=== PATIENT | female | born 1975 ===

== ENCOUNTER 2017-06-06 20:18 | Emergency (ER) | payer OTHER ==
[2017-06-06 20:18] VITALS: BMI 25.2
[2017-06-06 20:36] VITALS: BP 123/76; PULSE 70; RESP 16; TEMP 98.4; O2SAT 98
--- NOTE | 2017-06-06 21:31 | ED PDOC ---
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 Patient states she just finished her menses and is currently taking control but she is concerned she may be . She did not take any test at home. She denies vaginal bleeding at present, denies any dysuria. PMD: none Past Medical History Reviewed: Historical Data, Nursing Documentation, Vital Signs Vital Signs: Last Vital Signs Temp 98.4 F 06/06/17 20:32 Pulse 70 06/06/17 20:32 Resp 16 06/06/17 20:32 BP 123/76 06/06/17 20:32 Pulse Ox 98 06/06/17 21:38 - Medical History PMH: Anxiety - Surgical History Surgical History: Cholecystectomy (03-16-2016), (x 2) Other surgeries: surgery for ectopic - Family History Family History: States: No Known Family Hx - Living Arrangements Living Arrangements: With Family - Social History Current smoker - smoking cessation education provided: No Alcohol: None Drugs: Denies - Home Medications Home Medications: Ambulatory Orders Medication Instructions Recorded Aluminum Hydroxide/Magnesium 30 ml PO 5XD PRN #240 ml 02/17/16 [Maalox Plus 30 ml] Docusate [Colace] 100 mg PO BID #60 cap 02/17/16 Magnesium Citrate [Good Neighbor 300 ml PO ONCE PRN #1 bottle 02/17/16 Pharmacy Magnesium Citrate] Ibuprofen [Motrin] 600 mg PO Q6H #30 tab 06/07/16 - Allergies Allergies/Adverse Reactions: Allergies Allergy/AdvReac Type Severity Reaction Status Date / Time No Known Allergies Allergy Verified 06/06/17 20:31 Review of Systems ROS Statement: Except As Marked, All Systems Reviewed And Found Negative Constitutional: Negative for: Fever Cardiovascular: Negative for: Chest Pain Respiratory: Negative for: Cough Gastrointestinal: Positive for: Abdominal Pain. Negative for: Nausea, Vomiting Genitourinary Female: Negative for: Dysuria, Vaginal Bleeding Physical Exam - Reviewed Nursing Documentation Reviewed: Yes Vital Signs Reviewed: Yes - Physical Exam Appears: Positive for: Well, Non-toxic, No Acute Distress Skin: Negative for: Rash Eye Exam: Positive for: Normal appearance Cardiovascular/Chest: Positive for: Regular Rate, Rhythm Respiratory: Positive for: Normal Breath Sounds Gastrointestinal/Abdominal: Positive for: Soft. Negative for: Tenderness, Distended, Guarding, Rebound Neurologic/Psych: Positive for: Alert, Oriented - Laboratory Results Urine POC: Negative Urine dip results: Negative for: Leukocyte Esterase, Blood, Nitrate, Ketones, Glucose, Bilirubin, Protein - ECG O2 Sat by Pulse Oximetry: 98 Pulse Ox Interpretation: Normal Medical Decision Making Medical Decision Makin42 year old female with abd pain Patient is insisting on serum test. She states that 8 years ago she was diagnosed with an ectopic and the urine test was negative but the blood test was positive. Plan: Urine test U dip Serum beta Both urine and serum beta's are negative. U dip negative. Patient was referred to [facility] clinic for follow-up. Advised NSAIDs for pain as needed. Disposition - Clinical Impression Clinical Impression: Abdominal cramps - Patient ED Disposition Is Patient to be Admitted: No Counseled Patient/Family Regarding: Studies Performed, Diagnosis, Need For Followup - Disposition Referrals: [facility] [Outside] Disposition: Routine/Home Disposition Time: 23:06 Condition: STABLE Additional Instructions: Tylenol or motrin for pain as needed. Follow up with women's clinic. Instructions: Abdominal Pain (ED) Forms: [employer] (Vietnamese) Print Language: PUERTO RICAN
== END 2017-06-06 23:20 | disposition home or self-care (01) ==
LOC: H.ER 20:18
DX: R10.9 Unspecified abdominal pain (principal); F41.9 Anxiety disorder, unspecified

== ENCOUNTER 2017-08-29 20:36 | Emergency (ER) | payer OTHER ==
[2017-08-29 20:36] VITALS: BMI 25.2
[2017-08-29 21:36] VITALS: BP 99/64; PULSE 65; TEMP 98.2; O2SAT 100
[2017-08-29] MEDS ORDERED: Lactated Ringer's 1,000 ML IV STA (22:09)
[2017-08-29] MEDS ORDERED: Dextrose 5%/Lactated Ringer's 1,000 ML IV SCH (22:15)
--- NOTE | 2017-08-29 22:25 | ED PDOC ---
HPI: Abdomen Time Seen by Provider: 08/29/17 21:39 Chief Complaint (Nursing): Abdominal Pain Chief Complaint (Provider): Abdominal Pain History Per: Patient Onset/Duration Of Symptoms: Days (3) Current Symptoms Are (Timing): Still Present Severity: Moderate Location Of Pain/Discomfort: LUQ, LLQ, Suprapubic Quality Of Discomfort: "Pain" Associated Symptoms: Nausea. denies: Fever, Chills, Vomiting, Diarrhea, Loss Of Appetite, Back Pain, Chest Pain, Constipation, Urinary Symptoms Exacerbating Factors: None Alleviating Factors: None Last Bowel Movement: Today Additional History Per: Patient Additional Complaint(s): 42 y/o female complaining of lower abdominal pain for the last three days associated with mild nausea without vomiting. She recently took a home test that was positive. 7 years ago, the patient had an ectopic pregancy and underwent oophorectomy and salpingectomy. No vaginal bleeding, or discharge. LMNP mid June, some spotting mid-july for 1.5 days. No PMD Past Medical History Reviewed: Historical Data, Nursing Documentation, Vital Signs Vital Signs: Last Vital Signs Temp 98.2 F 08/29/17 21:29 Pulse 65 08/29/17 21:29 Resp BP 99/64 L 08/29/17 21:29 Pulse Ox 100 08/30/17 17:53 - Medical History PMH: Anxiety, Depression - Surgical History Surgical History: Cholecystectomy (03-16-2016), (x 2) Other surgeries: oophorectomy and salpingectomy - Family History Family History: States: Unknown Family Hx - Social History Current smoker - smoking cessation education provided: No Ex-Smoker (has not smoked in the last 12 months): No Alcohol: None Drugs: Denies - Immunization History Hx Tetanus Toxoid Vaccination: No Hx Influenza Vaccination: No Hx Pneumococcal Vaccination: No - Home Medications Home Medications: Ambulatory Orders Medication Instructions Recorded Aluminum Hydroxide/Magnesium 30 ml PO 5XD PRN #240 ml 02/17/16 [Maalox Plus 30 ml] Docusate [Colace] 100 mg PO BID #60 cap 02/17/16 Magnesium Citrate [Good Neighbor 300 ml PO ONCE PRN #1 bottle 02/17/16 Pharmacy Magnesium Citrate] Ibuprofen [Motrin] 600 mg PO Q6H #30 tab 06/07/16 Acetaminophen [Tylenol Extra 1,000 mg PO Q6 PRN #100 tablet 08/30/17 Strength] Multivit/Folic Acid/I 1 tab PO DAILY #100 tab 08/30/17 [ Plus] - Allergies Allergies/Adverse Reactions: Allergies Allergy/AdvReac Type Severity Reaction Status Date / Time No Known Allergies Allergy Verified 06/06/17 20:31 Review of Systems ROS Statement: Except As Marked, All Systems Reviewed And Found Negative (and as per HPI) Gastrointestinal: Positive for: Nausea, Abdominal Pain Physical Exam - Reviewed Nursing Documentation Reviewed: Yes Vital Signs Reviewed: Yes - Physical Exam Appears: Positive for: Non-toxic, In Acute Distress (moderate) Head Exam: Positive for: ATRAUMATIC, NORMOCEPHALIC Skin: Positive for: Warm, Dry Cardiovascular/Chest: Positive for: Regular Rate, Rhythm Respiratory: Negative for: Accessory Muscle Use, Respiratory Distress Gastrointestinal/Abdominal: Positive for: Bowel Sounds (normal), Soft, Tenderness (suprapubic). Negative for: Mass, Guarding, Rebound Back: Positive for: Normal Inspection. Negative for: L CVA Tenderness, R CVA Tenderness, Decreased ROM Lymphatic: Negative for: Adenopathy Neurologic/Psych: Positive for: Alert. Negative for: Motor/Sensory Deficits - Laboratory Results Result Diagrams: 08/29/17 22:41 08/29/17 22:41 - ECG O2 Sat by Pulse Oximetry: 100 (RA) Medical Decision Making Medical Decision Making: Impression: and lower abdominal pain. Differential includes, but is not limited to: UTI, ectopic , round ligament pain, dehydration Plan: - Labs - US - IVF Accession No. : [id number] Patient Name / ID : SARA NAPIER / [id number] Exam Date : 08/29/2017 23:05:50 ( Approved ) Study Comment : Sex / Age : F / 42Y Creator : Nina Graham MD Dictator : Software Writer : Secondary Set Up Man : Nina Graham MD Approver2 : Report Date : 08/30/2017 00:24:00 My Comment : [facility] Division of Radiology [address] [address] Tel. no. Patient Name: QUYEN MARTINEZ Pt. Address: [address] [place] [address]. Rec #: [id number] [place] [address]: Esau FORBES, Mary Anne Penaloza Pt Order Location: [facility] : 1975 Female Age: 42 Order #: [id number] Reason for exam: preg pelvic pain h/o ectopic Ultrasound OB TRANSVAGINAL Exam Date: 08/29/17 This imaging exam was performed at [facility] EXAM: US , Transvaginal EXAM DATE/TIME: 08/29/2017 10:08 PM CLINICAL HISTORY: 42 years old, female; Pain; Other: Pelvic pain; Gestational age or lmp: 07/24/17; ; Additional info: Preg pelvic pain h/o ectopic TECHNIQUE: Real-time transvaginal obstetrical ultrasound of the maternal pelvis with image documentation. Transvaginal imaging was used for better evaluation of the adnexa. COMPARISON: No relevant prior studies available. FINDINGS: Uterus: Measures 8.6 x 4.5 x 6.8 cm. No intrauterine gestation is seen. Endometrial stripe measures 1.9 cm in thickness, which is abnormally thickened. It is mildly heterogeneous in appearance. Cervix appears long and closed. Right ovary: Could not be visualized. May be surgically absent, as the patient reports she has only one ovary. Left ovary: Measures 3.6 x 2.1 x 2.8 cm. Contains a 1.9 x 1.8 x 1.5 cm complex cystic lesion. This lesion has a thick wall, a cystic center, and a mildly crenulated appearance. It most likely represents a corpus luteal cyst, given its appearance. It does appear intraovarian rather than paraovarian in location. Flow seen in the left ovary on color and Doppler imaging, with no evidence of torsion. Cul-de-sac: No free fluid. IMPRESSION: No intrauterine gestation seen. Patient's quantitative beta-hCG level is reportedly 2331. Mildly thickened and heterogeneous endometrium. This could represent blood products/clot in the endometrial canal, secondary to a spontaneous . Note that retained products of conception and an ectopic gestation are not excluded entirely in this patient, however. Recommend clinical correlationand close clinical followup, including serial beta-hCG levels. Complex cystic lesion in the left ovary, most likely a corpus luteal cyst. Right ovary is not seen, and may be surgically absent. See above for remaining findings. Dictated By: Nina Graham MD Dictated Date/Time: 08/30/1723 Signed By: Nina Graham MD Date Signed: 23 Transcribed By: CATE Transcribe Date/Time : 08/30/1723 [facility]/BENJAMIN Castillo PREFABRICATOR medical professionals. Pt to repeat betahcg in 48 hours and repeat US in a week. DW pt findings and plan of care. Pt to repeat betahcg in ER and [facility]. Instructed to return to ER immediately for severe pain or bleeding. Concerns/questions addressed/answered. Scribe Attestation: Documented by Valeri Valdivia, acting as a scribe for Mary Anne Cifuentes MD. Provider Scribe Attestation: All medical record entries made by the Scribe were at my direction and personally dictated by me. I have reviewed the chart and agree that the record accurately reflects my personal performance of the history, physical exam, medical decision making, and the department course for this patient. I have also personally directed, reviewed, and agree with the discharge instructions and disposition. Disposition - Clinical Impression Clinical Impression: Abdominal pain during - Disposition Referrals: [facility] [Outside] Disposition: Routine/Home Disposition Time: 00:30 Condition: STABLE Additional Instructions: REGRESA A LA FAVIO DE EMERGENCIA SONIA A RIPITAR TELLO MINOO. REGRESA INMEDIATO SI TIENE MUCHO DOLOR. MARÍA TYLENOL PARA DOLOR Y VITAMINA DIARIO Prescriptions: Acetaminophen [Tylenol Extra Strength] 1,000 mg PO Q6 PRN #100 tablet PRN Reason: PAIN Multivit/Folic Acid/I [ Plus] 1 tab PO DAILY #100 tab Instructions: Pitfalls After Age 35, Symptoms Forms: [facility] (Congolese) Print Language: KYRGYZ
[2017-08-29 22:44] LABS: BASO # 0.1 K/uL (0.0-0.2); BASO % 0.8 % (0.0-2.0); EOS # 0.1 K/uL (0.0-0.7); EOS % 1.3 % (0.0-4.0); LYMPH # 1.6 K/uL (1.0-4.3); LYMPH % 20.1 % (20.0-40.0); MEAN CELL VOLUME 89.5 fl (81.0-99.0); MEAN CORPUSCULAR HEMOGLOBIN 30.1 pg (27.0-31.0); MEAN CORPUSCULAR HGB CONC 33.6 g/dL (33.0-37.0); MEAN PLATELET VOLUME 8.2 fl (7.2-11.7); MONO # 0.7 K/uL (0.0-0.8); MONO % 8.9 % (0.0-10.0); NEUT # 5.3 K/uL (1.8-7.0); NEUT % 68.9 % (50.0-75.0); RBC 4.64 Mil/uL (3.80-5.20); RED CELL DISTRIBUTION WIDTH 13.5 % (11.5-14.5); WHITE BLOOD COUNT 7.7 K/uL (4.8-10.8)
[2017-08-29 22:55] LABS: BLOOD UREA NITROGEN 16 mg/dl (7-17); CALCIUM 8.8 mg/dL (8.4-10.2); GFR AFRICAN-AMERICAN > 60; GFR NON-AFRICAN AMERICAN > 60
[2017-08-29 23:01] LABS: INR 0.9 (0.9-1.2); PARTIAL THROMBOPLASTIN TIME 36.4 Seconds (25.6-37.1); PROTHROMBIN TIME 10.1 Seconds (9.8-13.1)
--- NOTE | 2017-08-30 00:24 | US ---
EXAM: US , Transvaginal EXAM DATE/TIME: 08/29/2017 10:08 PM CLINICAL HISTORY: 42 years old, female; Pain; Other: Pelvic pain; Gestational age or lmp: 07/24/17; ; Additional info: Preg pelvic pain h/o ectopic TECHNIQUE: Real-time transvaginal obstetrical ultrasound of the maternal pelvis with image documentation. Transvaginal imaging was used for better evaluation of the adnexa. COMPARISON: No relevant prior studies available. FINDINGS: Uterus: Measures 8.6 x 4.5 x 6.8 cm. No intrauterine gestation is seen. Endometrial stripe measures 1.9 cm in thickness, which is abnormally thickened. It is mildly heterogeneous in appearance. Cervix appears long and closed. Right ovary: Could not be visualized. May be surgically absent, as the patient reports she has only one ovary. Left ovary: Measures 3.6 x 2.1 x 2.8 cm. Contains a 1.9 x 1.8 x 1.5 cm complex cystic lesion. This lesion has a thick wall, a cystic center, and a mildly crenulated appearance. It most likely represents a corpus luteal cyst, given its appearance. It does appear intraovarian rather than paraovarian in location. Flow seen in the left ovary on color and Doppler imaging, with no evidence of torsion. Cul-de-sac: No free fluid. IMPRESSION: No intrauterine gestation seen. Patient's quantitative beta-hCG level is reportedly 2331. Mildly thickened and heterogeneous endometrium. This could represent blood products/clot in the endometrial canal, secondary to a spontaneous . Note that retained products of conception and an ectopic gestation are not excluded entirely in this patient, however. Recommend clinical correlationand close clinical followup, including serial beta-hCG levels. Complex cystic lesion in the left ovary, most likely a corpus luteal cyst. Right ovary is not seen, and may be surgically absent. See above for remaining findings.
== END 2017-08-30 01:13 | disposition home or self-care (01) ==
LOC: H.ER 20:36
DX: O26.899 Other specified pregnancy related conditions, unspecified trimester (principal); F32.9 Major depressive disorder, single episode, unspecified; F41.9 Anxiety disorder, unspecified
CPT/HCPCS: 76817; 80048; 81025; 84702; 85025; 85610; 85730; 86850; 86900; 99283; J7120

== ENCOUNTER 2017-08-31 07:11 | Emergency (ER) | payer OTHER ==
[2017-08-31 07:22] VITALS: BP 104/65; PULSE 79; TEMP 98; O2SAT 98; BMI 26.3
--- NOTE | 2017-08-31 08:23 | ED PDOC ---
HPI: Female Pain Time Seen by Provider: 08/31/17 07:38 Chief Complaint (Nursing): Medical Clearance Chief Complaint (Provider): Repeat beta History Per: Patient History/Exam Limitations: no limitations Additional Complaint(s): Pt presents to ED for repeat beta hCG, abdominal pain and vaginal bleeding have resolved. Denies fever, nausea, vomiting. Abnormal Vaginal Bleeding: No Past Medical History Reviewed: Nursing Documentation, Vital Signs Vital Signs: Last Vital Signs Temp 98 F 08/31/17 07:21 Pulse 79 08/31/17 07:21 Resp BP 104/65 08/31/17 07:21 Pulse Ox 98 08/31/17 07:43 - Medical History PMH: Anxiety, Depression - Surgical History Surgical History: Cholecystectomy (03-16-2016), (x 2) - Family History Family History: States: Unknown Family Hx - Social History Current smoker - smoking cessation education provided: No Alcohol: None - Immunization History Hx Tetanus Toxoid Vaccination: No Hx Influenza Vaccination: No Hx Pneumococcal Vaccination: No - Home Medications Home Medications: Ambulatory Orders Medication Instructions Recorded Aluminum Hydroxide/Magnesium 30 ml PO 5XD PRN #240 ml 02/17/16 [Maalox Plus 30 ml] Docusate [Colace] 100 mg PO BID #60 cap 02/17/16 Magnesium Citrate [Good Neighbor 300 ml PO ONCE PRN #1 bottle 02/17/16 Pharmacy Magnesium Citrate] Ibuprofen [Motrin] 600 mg PO Q6H #30 tab 06/07/16 Acetaminophen [Tylenol Extra 1,000 mg PO Q6 PRN #100 tablet 08/30/17 Strength] Multivit/Folic Acid/I 1 tab PO DAILY #100 tab 08/30/17 [ Plus] - Allergies Allergies/Adverse Reactions: Allergies Allergy/AdvReac Type Severity Reaction Status Date / Time No Known Allergies Allergy Verified 08/31/17 07:43 Review of Systems Constitutional: Negative for: Fever, Chills Cardiovascular: Negative for: Chest Pain Respiratory: Negative for: Cough, Shortness of Breath Gastrointestinal: Negative for: Nausea, Vomiting, Abdominal Pain, Diarrhea Genitourinary Female: Negative for: Dysuria, Hematuria, Vaginal Discharge, Vaginal Bleeding Neurological: Negative for: Headache Physical Exam - Reviewed Nursing Documentation Reviewed: Yes Vital Signs Reviewed: Yes - Physical Exam Appears: Positive for: Well, No Acute Distress Skin: Positive for: Normal Color, Warm, Dry Eye Exam: Positive for: Normal appearance, EOMI, PERRL Cardiovascular/Chest: Positive for: Regular Rate, Rhythm Respiratory: Positive for: Normal Breath Sounds Gastrointestinal/Abdominal: Positive for: Normal Exam, Bowel Sounds, Soft. Negative for: Tenderness Neurologic/Psych: Positive for: Alert, Oriented - ECG O2 Sat by Pulse Oximetry: 98 Medical Decision Making Medical Decision Makin yo female presents for repeat beta hCG. - beta hCG Results and plan discussed with patient using [employer] retort engineer #[id number] , expressed verbal understanding, questions answered. Disposition - Clinical Impression Clinical Impression: First trimester - Disposition Referrals: [facility] [Outside] Disposition: Routine/Home Disposition Time: 09:08 Condition: STABLE Additional Instructions: Seguimiento con la clnica OB-RIG BUILDER HELPER en 5 gan para el ultrasonido. Si no puede obtener beth alvina, regrese a ER. Regrese antes si desarrolla dolor o sangrado creciente. Instructions: Care, - The First Month, - The Second Month Forms: [facility] (English) Print Language: MALAGASY
== END 2017-08-31 09:35 | disposition home or self-care (01) ==
LOC: H.ER 07:11
DX: Z33.1 Pregnant state, incidental (principal)

== ENCOUNTER 2017-09-04 10:46 | Emergency (ER) | payer SELFPAY ==
[2017-09-04 10:47] VITALS: BMI 26.3
[2017-09-04 11:09] VITALS: BP 99/66; PULSE 72; RESP 18; TEMP 97
--- NOTE | 2017-09-04 11:14 | ED PDOC ---
HPI: Female Pain Time Seen by Provider: 09/04/17 11:06 Chief Complaint (Nursing): Female Genitourinary Chief Complaint (Provider): ER Follow up History Per: Patient History/Exam Limitations: no limitations Onset/Duration Of Symptoms: Days Quality Of Discomfort: denies: "Pain" Associated Symptoms: denies: Fever, Chills, Nausea, Vomiting, Diarrhea Additional Complaint(s): 42yo female, presents to ER for a re-evaluation as she was informed last week that she had a Beta-HCG level of 2331.80 and a repeat on 08/31 which indicated Beta-HCG of 2561.60. Patient had an US done on 08/29 which did not indicate an IUP. Patient currently denies any abdominal pain, back pain, vaginal bleeding, fever, chills, chest pain, shortness of breath. She offers no medical complaints. PMD: [facility] Abnormal Vaginal Bleeding: No Past Medical History Reviewed: Historical Data, Nursing Documentation, Vital Signs Vital Signs: Last Vital Signs Temp 97 F L 09/04/17 11:05 Pulse 72 09/04/17 11:05 Resp 18 09/04/17 11:05 BP 99/66 L 09/04/17 11:05 Pulse Ox 100 09/04/17 11:05 - Medical History PMH: Anxiety, Depression - Surgical History Surgical History: Cholecystectomy (03-16-2016), (x 2) - Family History Family History: States: Unknown Family Hx - Immunization History Hx Tetanus Toxoid Vaccination: No Hx Influenza Vaccination: No Hx Pneumococcal Vaccination: No - Home Medications Home Medications: Ambulatory Orders Medication Instructions Recorded Aluminum Hydroxide/Magnesium 30 ml PO 5XD PRN #240 ml 02/17/16 [Maalox Plus 30 ml] Docusate [Colace] 100 mg PO BID #60 cap 02/17/16 Magnesium Citrate [Good Neighbor 300 ml PO ONCE PRN #1 bottle 02/17/16 Pharmacy Magnesium Citrate] Ibuprofen [Motrin] 600 mg PO Q6H #30 tab 06/07/16 Acetaminophen [Tylenol Extra 1,000 mg PO Q6 PRN #100 tablet 08/30/17 Strength] Multivit/Folic Acid/I 1 tab PO DAILY #100 tab 08/30/17 [ Plus] - Allergies Allergies/Adverse Reactions: Allergies Allergy/AdvReac Type Severity Reaction Status Date / Time No Known Allergies Allergy Verified 08/31/17 07:43 Review of Systems ROS Statement: Except As Marked, All Systems Reviewed And Found Negative Constitutional: Negative for: Fever, Chills Cardiovascular: Negative for: Chest Pain Respiratory: Negative for: Shortness of Breath Gastrointestinal: Negative for: Abdominal Pain Genitourinary Female: Negative for: Vaginal Bleeding Musculoskeletal: Negative for: Back Pain Physical Exam - Reviewed Nursing Documentation Reviewed: Yes Vital Signs Reviewed: Yes - Physical Exam Appears: Positive for: Non-toxic, No Acute Distress Head Exam: Positive for: ATRAUMATIC, NORMAL INSPECTION, NORMOCEPHALIC Skin: Positive for: Normal Color Eye Exam: Positive for: Normal appearance Neck: Positive for: Supple Cardiovascular/Chest: Positive for: Regular Rate, Rhythm Respiratory: Positive for: Normal Breath Sounds. Negative for: Respiratory Distress Pulses-Radial (L): 2+ Pulses-Radial (R): 2+ Gastrointestinal/Abdominal: Positive for: Normal Exam, Soft. Negative for: Tenderness Back: Positive for: Normal Inspection. Negative for: L CVA Tenderness, R CVA Tenderness Extremity: Positive for: Normal ROM. Negative for: Pedal Edema Neurologic/Psych: Positive for: Alert, Oriented - Laboratory Results Result Diagrams: 09/04/17 12:18 09/04/17 12:18 Interpretation Of Abn Labs: 2681 bhcg - ECG O2 Sat by Pulse Oximetry: 100 (RA) Pulse Ox Interpretation: Normal - CT Scan/US us Other Rad Studies (CT/US): Read By Radiologist Other Rad Interpretation: gestational sac iup - Progress ED Course And Treament: 1344: Stable. AAOx3. Tolerated PO. In no pain. Spoke with Dr. Yancey. Made aware of findings, presentation. States is an IUP. Fu with clinic in 1 week to see viability. Medical Decision Making Medical Decision Making: Impression: Abnormal labs, + Beta HCG in setting of US indicating no IUP Plan: -- Beta-HCG Quantitative -- US Transvaginal -- CMP -- CBC Prior records reviewed: 08/29/17 B-HCG level of 2331.80, Blood type: O+ 08/31/17 B-HCG level of 2561.60 Scribe Attestation: Documented by Armida Samayoa acting as a scribe for Campbell Turk, MD Provider Attestation: All medical record entries made by the Tonoibkeke were at my direction and personally dictated by me. I have reviewed the chart and agree that the record accurately reflects my personal performance of the history, physical exam, medical decision making, and the department course for this patient. I have also personally directed, reviewed, and agree with the discharge instructions and disposition. Disposition - Clinical Impression Clinical Impression: Threatened - Patient ED Disposition Is Patient to be Admitted: No Counseled Patient/Family Regarding: Studies Performed, Diagnosis, Need For Followup - Disposition Referrals: [facility] [Outside] - 09/05/17 Disposition: Routine/Home Disposition Time: 13:45 Condition: STABLE Additional Instructions: Return if not better in 3 days. Instructions: Threatened Miscarriage Print Language: STATELESS
[2017-09-04 11:27] VITALS: O2SAT 100
--- NOTE | 2017-09-04 12:15 | US ---
PROCEDURE: OB Pelvic Ultrasound HISTORY: preg and hx of pain LMP: Lesser spurs reported 07/24/2017 suggesting estimated gestational age of 6 weeks 0 days. COMPARISON: Obstetric ultrasonography 06/15/2017. TECHNIQUE: Transvaginal pelvic ultrasound was performed with longitudinal and transverse images submitted for interpretation. FINDINGS: UTERUS: Gestational sac: A fluid collection is now identified within the endometrial cavity suggestive of a gestational sac but no pole yolk sac or amniotic membrane is appreciate. The mean sac diameter is 0.6 cm. This may indicate an intrauterine gestation under 6 weeks estimated gestational age. This is not discordant with the estimated gestational age by LMP of 6 weeks 0 days and further clinical correlation and sonographic follow-up are advised. The decidual reaction appears unremarkable grossly. No prominent hemorrhage is seen related. Uterus measures 9.0 x 5.8 x 6.6 cm. Normal in size and appearance. CERVIX: Measures 4.0 cm. Long and closed. Small nabothian cyst is suggested posteriorly. . RIGHT OVARY: Not identified. No suspicious adnexal mass or fluid collection appreciable. LEFT OVARY: Measures 3.3 x 2.1 x 3.1 cm. No solid mass. Normal flow. A likely developing corpus luteum cyst is suggested in the left ovary measure 1.7 x 1.4 x 1.2 cm. FREE FLUID: None. OTHER FINDINGS: None. IMPRESSION: History gestational sac is identified in the interval but there is no pole or yolk sac yet appreciable at this time. Correlate with quantitative beta-hCG analysis which is unavailable the time of interpretation of this examination. Follow ultrasound can be performed 1 week to demonstrate viability. Two gestational sac with ectopic not excluded nor is failure of gestation.
[2017-09-04 12:21] LABS: BASO % 0.8 % (0.0-2.0); EOS # 0.1 K/uL (0.0-0.7); EOS % 1.1 % (0.0-4.0); HEMOGLOBIN 14.1 g/dL (12.0-16.0); LYMPH # 1.5 K/uL (1.0-4.3); LYMPH % 26.2 % (20.0-40.0); MEAN CORPUSCULAR HEMOGLOBIN 29.9 pg (27.0-31.0); MEAN CORPUSCULAR HGB CONC 33.6 g/dL (33.0-37.0); MEAN PLATELET VOLUME 7.6 fl (7.2-11.7); MONO # 0.5 K/uL (0.0-0.8); MONO % 8.8 % (0.0-10.0); NEUT # 3.6 K/uL (1.8-7.0); NEUT % 63.1 % (50.0-75.0); RBC 4.7 Mil/uL (3.80-5.20); RED CELL DISTRIBUTION WIDTH 13.4 % (11.5-14.5); WHITE BLOOD COUNT 5.6 K/uL (4.8-10.8)
[2017-09-04 12:32] LABS: ALB/GLOB RATIO 1.2 (1.0-2.1); ALT/SGPT 43 U/L (9-52); AST/SGOT 23 U/L (14-36); BLOOD UREA NITROGEN 10 mg/dl (7-17); CALCIUM 8.7 mg/dL (8.4-10.2); GFR AFRICAN-AMERICAN > 60; GFR NON-AFRICAN AMERICAN > 60
== END 2017-09-04 14:00 | disposition home or self-care (01) ==
LOC: H.ER 10:46
DX: O20.0 Threatened abortion (principal); F32.9 Major depressive disorder, single episode, unspecified; F41.9 Anxiety disorder, unspecified

== ENCOUNTER 2017-09-06 22:10 | Emergency (ER) | payer SELFPAY ==
[2017-09-06 22:10] VITALS: BMI 26.3
[2017-09-06 22:16] VITALS: BP 112/72; PULSE 70; RESP 18; TEMP 98.1; O2SAT 99
--- NOTE | 2017-09-06 22:33 | ED PDOC ---
HPI: Female Pain Time Seen by Provider: 09/06/17 22:20 Chief Complaint (Nursing): Female Genitourinary History Per: Patient Onset/Duration Of Symptoms: Hrs (1) Current Symptoms Are (Timing): Still Present Severity: Mild Pain Scale Rating Of: 4 Quality Of Discomfort: Cramping Additional Complaint(s): Vaginal bleeding x 1 hr. Seen in ED previously for lower abd crampy pain with low beta HCG and ? IUP. Started bleeding 1 hr ago. H/o previous ectopic 7 h yrs ago. Past Medical History Vital Signs: Last Vital Signs Temp 98.1 F 09/06/17 22:13 Pulse 70 09/06/17 22:13 Resp 18 09/06/17 22:13 BP 112/72 09/06/17 22:13 Pulse Ox 99 09/06/17 22:13 - Medical History PMH: Anxiety, Depression - Surgical History Surgical History: Cholecystectomy (03-16-2016), (x 2) Other surgeries: Ectopic salpingectomy - Family History Family History: States: Unknown Family Hx - Immunization History Hx Tetanus Toxoid Vaccination: No Hx Influenza Vaccination: No Hx Pneumococcal Vaccination: No - Home Medications Home Medications: Ambulatory Orders Medication Instructions Recorded Aluminum Hydroxide/Magnesium 30 ml PO 5XD PRN #240 ml 02/17/16 [Maalox Plus 30 ml] Docusate [Colace] 100 mg PO BID #60 cap 02/17/16 Magnesium Citrate [Good Neighbor 300 ml PO ONCE PRN #1 bottle 02/17/16 Pharmacy Magnesium Citrate] Ibuprofen [Motrin] 600 mg PO Q6H #30 tab 06/07/16 Acetaminophen [Tylenol Extra 1,000 mg PO Q6 PRN #100 tablet 08/30/17 Strength] Multivit/Folic Acid/I 1 tab PO DAILY #100 tab 08/30/17 [ Plus] - Allergies Allergies/Adverse Reactions: Allergies Allergy/AdvReac Type Severity Reaction Status Date / Time No Known Allergies Allergy Verified 08/31/17 07:43 Review of Systems Gastrointestinal: Positive for: Abdominal Pain Genitourinary Female: Positive for: Vaginal Bleeding Neurological: Negative for: Dizziness Physical Exam - Physical Exam Appears: Positive for: Non-toxic, No Acute Distress Skin: Positive for: Normal Color, Warm, DRY Gastrointestinal/Abdominal: Positive for: Bowel Sounds, Soft, Tenderness ( suprapubic) Pelvic Exam: Positive for: External Exam Normal, No Masses, Blood. Negative for : Tender Adnexa, Tender Uterus - Laboratory Results Result Diagrams: 09/06/17 23:07 - ECG O2 Sat by Pulse Oximetry: 99 Medical Decision Making Medical Decision Making: Discussed with Dr. Yancey. Bleeding today can represent early or possible missed Ab. Can continued to be monitored as outpt. No need for repeat US as US 2 days ago revealed gestational sac, unlikely to show any change today. No significanyt pain or tenderness or masses palpable Disposition - Clinical Impression Clinical Impression: Threatened - Patient ED Disposition Is Patient to be Admitted: No Counseled Patient/Family Regarding: Studies Performed, Diagnosis, Need For Followup - Disposition [facility]errals[facility] [Outside] Disposition: Routine/Home Disposition Time: 23:59 Condition: FAIR Instructions: Threatened Miscarriage Forms: [facility] (Amharic) Print Language: MONTSERRATIAN
[2017-09-06 23:11] LABS: BASO % 0.7 % (0.0-2.0); EOS # 0.1 K/uL (0.0-0.7); HEMOGLOBIN 14.4 g/dL (12.0-16.0); LYMPH # 1.4 K/uL (1.0-4.3); LYMPH % 21.1 % (20.0-40.0); MEAN CELL VOLUME 90.7 fl (81.0-99.0); MEAN CORPUSCULAR HEMOGLOBIN 30.1 pg (27.0-31.0); MEAN CORPUSCULAR HGB CONC 33.2 g/dL (33.0-37.0); MEAN PLATELET VOLUME 8.1 fl (7.2-11.7); MONO # 0.7 K/uL (0.0-0.8); MONO % 10.1 % (0.0-10.0); NEUT # 4.5 K/uL (1.8-7.0); NEUT % 66.1 % (50.0-75.0); RBC 4.79 Mil/uL (3.80-5.20); RED CELL DISTRIBUTION WIDTH 13.7 % (11.5-14.5); WHITE BLOOD COUNT 6.7 K/uL (4.8-10.8)
== END 2017-09-07 00:49 | disposition home or self-care (01) ==
LOC: H.ER 22:10
DX: O20.0 Threatened abortion (principal); F32.9 Major depressive disorder, single episode, unspecified; F41.9 Anxiety disorder, unspecified

== ENCOUNTER 2017-09-12 20:33 | Emergency (ER) | payer SELFPAY ==
[2017-09-12 20:34] VITALS: BMI 26.3
[2017-09-12 21:38] VITALS: RESP 18
--- NOTE | 2017-09-12 23:12 | ED PDOC ---
HPI: Female Pain Time Seen by Provider: 09/12/17 22:28 Chief Complaint (Nursing): Female Genitourinary History Per: Patient Onset/Duration Of Symptoms: Days (x since friday) Current Symptoms Are (Timing): Still Present Additional Complaint(s): 42-year-old female, with a history of ectopic , presents to ED for vaginal bleeding and pelvic cramping since Friday. Patient has been seen here 4 time since August 29 for threaten miscarriage. Reports she is unable to make an appointment with clinic despite multiple attempts. Patients states her bleeding slow down. Patient was told to return to ER for re-evaluation. Used 1 pad. Reports no clots. Patient has not been IUP. PMD: No PCP Past Medical History Reviewed: Historical Data, Nursing Documentation, Vital Signs Vital Signs: Last Vital Signs Temp 97.9 F 09/12/17 21:34 Pulse 74 09/12/17 21:34 Resp 18 09/12/17 21:34 BP 111/71 09/12/17 21:34 Pulse Ox 100 09/12/17 21:34 - Medical History PMH: Anxiety, Depression Other PMH: Ectopic - Surgical History Surgical History: Cholecystectomy (03-16-2016), (x 2) - Family History Family History: States: Unknown Family Hx - Social History Current smoker - smoking cessation education provided: No Alcohol: None Drugs: Denies - Immunization History Hx Tetanus Toxoid Vaccination: No Hx Influenza Vaccination: No Hx Pneumococcal Vaccination: No - Home Medications Home Medications: Ambulatory Orders Medication Instructions Recorded Aluminum Hydroxide/Magnesium 30 ml PO 5XD PRN #240 ml 02/17/16 [Maalox Plus 30 ml] Docusate [Colace] 100 mg PO BID #60 cap 02/17/16 Magnesium Citrate [Good Neighbor 300 ml PO ONCE PRN #1 bottle 02/17/16 Pharmacy Magnesium Citrate] Ibuprofen [Motrin] 600 mg PO Q6H #30 tab 06/07/16 Acetaminophen [Tylenol Extra 1,000 mg PO Q6 PRN #100 tablet 08/30/17 Strength] Multivit/Folic Acid/I 1 tab PO DAILY #100 tab 08/30/17 [ Plus] - Allergies Allergies/Adverse Reactions: Allergies Allergy/AdvReac Type Severity Reaction Status Date / Time No Known Allergies Allergy Verified 09/12/17 21:33 Review of Systems ROS Statement: Except As Marked, All Systems Reviewed And Found Negative Genitourinary Female: Positive for: Vaginal Bleeding, Pelvic Pain Physical Exam - Reviewed Nursing Documentation Reviewed: Yes Vital Signs Reviewed: Yes - Physical Exam Appears: Positive for: Non-toxic, No Acute Distress Gastrointestinal/Abdominal: Positive for: Tenderness (Mild suprapubic tenderness to palpation). Negative for: Mass, Guarding, Rebound - Laboratory Results Result Diagrams: 09/12/17 23:41 - ECG O2 Sat by Pulse Oximetry: 100 (RA) Pulse Ox Interpretation: Normal Medical Decision Making Medical Decision Making: Time: 22:29 Impression(s): Threatened miscarriage vs. Ectopic Plan: - Beta-hCG, Quantitative - ED Urine - ED Urine Dipstick - CBC - OB Transvaginal Ultrasound Beta-hCG, Quantitative reveals 184 mIU/mL, which is markedly decreased from previous visit. Time: 00:23 OB Transvaginal Ultrasound FINDINGS: Uterus Uterus is anteflexed. Endometrium measures approximately 10 mm in width. There is no intrauterine gestation. Ovaries: Left ovary measures approximately 2.4 x 1.7 x 2.1 cm.There are multiple small follicles. Corpus luteum seen on the prior study is not identified. There is intraovarian blood flow. Right ovary could not be identified. There are no adnexal masses. Free fluid: There is no free fluid. IMPRESSION: No intrauterine or ectopic gestation identified; nonvisualization of the right ovary; no free fluid Correlation with beta hCG level advised Discussed findings with patient. Labs and ultrasound now c/w with miscarriage. Advised to follow up with women's clinic for further evaluation. Reasons to RTER reviewed w patient: severe pain, bleeding more than one pad an hour, fainting or near fainting. Scribe Attestation: Documented by Boy Gan, acting as a scribe for Mary Anne Cifuentes MD. Provider Scribe Attestation: All medical record entries made by the Scribe were at my direction and personally dictated by me. I have reviewed the chart and agree that the record accurately reflects my personal performance of the history, physical exam, medical decision making, and the department course for this patient. I have also personally directed, reviewed, and agree with the discharge instructions and disposition. Disposition - Clinical Impression Clinical Impression: Miscarriage - Patient ED Disposition Is Patient to be Admitted: No - Disposition Referrals: [facility] [Outside] Disposition: Routine/Home Disposition Time: 00:40 Condition: GOOD Instructions: Miscarriage Forms: [facility] (Moldovan) Print Language: WOLOF
[2017-09-12 23:44] LABS: BASO % 0.8 % (0.0-2.0); EOS # 0.1 K/uL (0.0-0.7); EOS % 2.5 % (0.0-4.0); HEMOGLOBIN 13.5 g/dL (12.0-16.0); LYMPH # 1.8 K/uL (1.0-4.3); LYMPH % 31.1 % (20.0-40.0); MEAN CORPUSCULAR HEMOGLOBIN 29.9 pg (27.0-31.0); MEAN CORPUSCULAR HGB CONC 33.2 g/dL (33.0-37.0); MEAN PLATELET VOLUME 7.8 fl (7.2-11.7); MONO # 0.6 K/uL (0.0-0.8); MONO % 9.8 % (0.0-10.0); NEUT # 3.3 K/uL (1.8-7.0); NEUT % 55.8 % (50.0-75.0); RBC 4.51 Mil/uL (3.80-5.20); RED CELL DISTRIBUTION WIDTH 14.1 % (11.5-14.5); WHITE BLOOD COUNT 5.9 K/uL (4.8-10.8)
--- NOTE | 2017-09-13 00:24 | US ---
EXAM: US , Transvaginal EXAM DATE/TIME: 09/12/2017 10:29 PM CLINICAL HISTORY: 42 years old, female; Pain; Other: Cramps and spotting; Gestational age or lmp: 08/06/17; Additional info: Abd pain; absence of the right ovary TECHNIQUE: Real-time transvaginal obstetrical ultrasound of the maternal pelvis and a first trimester with image documentation. Transvaginal imaging was used for better evaluation of the fetus and adnexa. COMPARISON: US - OB TRANSVAGINAL 2017-08-29 23:05 FINDINGS: Uterus Uterus is anteflexed. Endometrium measures approximately 10 mm in width. There is no intrauterine gestation. Ovaries: Left ovary measures approximately 2.4 x 1.7 x 2.1 cm.There are multiple small follicles. Corpus luteum seen on the prior study is not identified. There is intraovarian blood flow. Right ovary could not be identified. There are no adnexal masses. Free fluid: There is no free fluid. IMPRESSION: No intrauterine or ectopic gestation identified; nonvisualization of the right ovary; no free fluid Correlation with beta hCG level advised
[2017-09-13 01:28] VITALS: BP 115/54; PULSE 59; TEMP 98.1
[2017-09-13 17:51] VITALS: O2SAT 100
== END 2017-09-13 01:28 | disposition home or self-care (01) ==
LOC: H.ER 20:33
DX: O03.9 Complete or unspecified spontaneous abortion without complication (principal); F32.9 Major depressive disorder, single episode, unspecified; F41.9 Anxiety disorder, unspecified

== ENCOUNTER 2017-09-26 09:08 | Emergency (ER) | payer SELFPAY ==
[2017-09-26 09:11] VITALS: BMI 25.8
--- NOTE | 2017-09-26 12:31 | US ---
HISTORY: s/p spontaneous COMPARISON: 09/12/2017 and 09/04/2017. TECHNIQUE: Transvaginal only. Real -time technique with 2D, duplex and color Doppler FINDINGS: UTERUS: Measures 5.9 x 4.3 x 10.4 cm. Normal in size and appearance. No fibroid or other mass lesion seen. ENDOMETRIUM: Measures 11.4 mm in diameter. Mildly heterogeneous. No visible products of conception. CERVIX: No cervical abnormality identified. RIGHT OVARY: Prior right oophorectomy approximately 7 years ago LEFT OVARY: Measures 1.7 x 2.1 x 2.4 cm. No solid mass. Normal flow. Multiple subcentimeter follicles and thick walled slightly complicated cyst with debris measuring 1.7 x 1.9 x 1.4 cm FREE FLUID: No significant free fluid noted. OTHER FINDINGS: None. IMPRESSION: Endometrial hypertrophy without focal abnormality. Additional benign and/or incidental findings described above.
--- NOTE | 2017-09-26 14:10 | ED PDOC ---
HPI: Abdomen Time Seen by Provider: 09/26/17 09:30 Chief Complaint (Nursing): Abdominal Pain History Per: Patient (this 42 yo female who is s/p spontaneous 09/12 presents because of lower abdominal discomfort. She denies associated fever, chills, nausea, vomiting or diarrhea. She notes that she has scheduled followup in [facility] and women's health clinic next week. ) Past Medical History Reviewed: Historical Data, Nursing Documentation, Vital Signs Vital Signs: Last Vital Signs Temp 98.3 F 09/26/17 09:11 Pulse 67 09/26/17 09:11 Resp 16 09/26/17 09:11 BP 97/64 L 09/26/17 09:11 Pulse Ox 98 09/26/17 09:11 - Medical History PMH: Anxiety, Depression - Surgical History Surgical History: Cholecystectomy (03-16-2016), (x 2) - Family History Family History: States: Unknown Family Hx - Living Arrangements Living Arrangements: With Family - Immunization History Hx Tetanus Toxoid Vaccination: No Hx Influenza Vaccination: No Hx Pneumococcal Vaccination: No - Home Medications Home Medications: Ambulatory Orders Medication Instructions Recorded Aluminum Hydroxide/Magnesium 30 ml PO 5XD PRN #240 ml 02/17/16 [Maalox Plus 30 ml] Docusate [Colace] 100 mg PO BID #60 cap 02/17/16 Magnesium Citrate [Good Neighbor 300 ml PO ONCE PRN #1 bottle 02/17/16 Pharmacy Magnesium Citrate] Ibuprofen [Motrin] 600 mg PO Q6H #30 tab 06/07/16 Acetaminophen [Tylenol Extra 1,000 mg PO Q6 PRN #100 tablet 08/30/17 Strength] Multivit/Folic Acid/I 1 tab PO DAILY #100 tab 08/30/17 [ Plus] - Allergies Allergies/Adverse Reactions: Allergies Allergy/AdvReac Type Severity Reaction Status Date / Time No Known Allergies Allergy Verified 09/12/17 21:33 Review of Systems ROS Statement: Except As Marked, All Systems Reviewed And Found Negative Respiratory: Negative for: Shortness of Breath Gastrointestinal: Positive for: Abdominal Pain (lower bilaterally and suprapubic ). Negative for: Nausea, Vomiting Physical Exam - Reviewed Nursing Documentation Reviewed: Yes Vital Signs Reviewed: Yes - Physical Exam Appears: Positive for: Well, Non-toxic, No Acute Distress Head Exam: Positive for: ATRAUMATIC, NORMAL INSPECTION, NORMOCEPHALIC Skin: Positive for: Normal Color Eye Exam: Positive for: Normal appearance, EOMI ENT: Positive for: Normal ENT Inspection Neck: Positive for: Normal Cardiovascular/Chest: Positive for: Regular Rate, Rhythm Respiratory: Positive for: CNT, Normal Breath Sounds Gastrointestinal/Abdominal: Positive for: Normal Exam, Soft, Tenderness (mild bilateral and suprapubic) Back: Positive for: Normal Inspection Extremity: Positive for: Normal ROM Neurologic/Psych: Positive for: Alert, Oriented - ECG O2 Sat by Pulse Oximetry: 98 Medical Decision Making Medical Decision Making: US normal. Disposition - Clinical Impression Clinical Impression: Pelvic pain - Patient ED Disposition Is Patient to be Admitted: No Doctor Will See Patient In The: Office Counseled Patient/Family Regarding: Diagnosis, Need For Followup - Disposition Referrals: [facility] [place] [Outside] - 10/01/17 [facility] [Outside] - 09/30/17 Disposition: Routine/Home Disposition Time: 13:30 Condition: STABLE Instructions: Chronic Pelvic Pain (DC) Forms: [employer] (Kittitian), [facility] ED School/Work Excuse - POA Present On Arrival: None
[2017-09-26 14:40] VITALS: PULSE 66; TEMP 98.2
[2017-09-26 14:56] VITALS: BP 122/74; RESP 16; O2SAT 99
== END 2017-09-26 14:20 | disposition home or self-care (01) ==
LOC: H.ER 09:08
DX: R10.2 Pelvic and perineal pain (principal); F32.9 Major depressive disorder, single episode, unspecified; F41.9 Anxiety disorder, unspecified

== ENCOUNTER 2017-10-05 08:58 | Emergency (ER) | payer SELFPAY ==
[2017-10-05 08:59] VITALS: BMI 25.8
[2017-10-05 09:10] VITALS: TEMP 98.2; O2SAT 99
[2017-10-05] MEDS ORDERED: Sodium Chloride 0.9% 1,000 ML IV STA (09:25)
--- NOTE | 2017-10-05 09:29 | ED PDOC ---
HPI: Abdomen Time Seen by Provider: 10/05/17 09:09 Chief Complaint (Nursing): Abnormal Skin Integrity History Per: Patient Onset/Duration Of Symptoms: Days (2) Current Symptoms Are (Timing): Still Present Severity: Mild Pain Scale Rating Of: 2 Location Of Pain/Discomfort: RUQ Quality Of Discomfort: Unable To Describe Associated Symptoms: Nausea. denies: Fever, Vomiting, Diarrhea, Urinary Symptoms Additional Complaint(s): RUQ abd pain assoc with nausea x 2 days. Denies fever vomiting or diarrhea. No urinary sxs. Past Medical History Vital Signs: Last Vital Signs Temp 98.2 F 10/05/17 09:07 Pulse 86 10/05/17 09:07 Resp 18 10/05/17 09:07 BP 95/62 L 10/05/17 09:07 Pulse Ox 99 10/05/17 09:29 - Medical History PMH: Anxiety, Depression - Surgical History Surgical History: Cholecystectomy (03-16-2016), (x 2) - Family History Family History: States: Unknown Family Hx - Immunization History Hx Tetanus Toxoid Vaccination: No Hx Influenza Vaccination: No Hx Pneumococcal Vaccination: No - Home Medications Home Medications: Ambulatory Orders Medication Instructions Recorded Aluminum Hydroxide/Magnesium 30 ml PO 5XD PRN #240 ml 02/17/16 [Maalox Plus 30 ml] Docusate [Colace] 100 mg PO BID #60 cap 02/17/16 Magnesium Citrate [Good Neighbor 300 ml PO ONCE PRN #1 bottle 02/17/16 Pharmacy Magnesium Citrate] Ibuprofen [Motrin] 600 mg PO Q6H #30 tab 06/07/16 Acetaminophen [Tylenol Extra 1,000 mg PO Q6 PRN #100 tablet 08/30/17 Strength] Multivit/Folic Acid/I 1 tab PO DAILY #100 tab 08/30/17 [ Plus] Pantoprazole Sodium [Protonix] 40 mg PO DAILY #30 tablet. 10/05/17 - Allergies Allergies/Adverse Reactions: Allergies Allergy/AdvReac Type Severity Reaction Status Date / Time No Known Allergies Allergy Verified 09/12/17 21:33 Review of Systems ROS Statement: Except As Marked, All Systems Reviewed And Found Negative Constitutional: Negative for: Fever Gastrointestinal: Positive for: Nausea, Abdominal Pain. Negative for: Vomiting , Diarrhea Genitourinary Female: Negative for: Dysuria, Frequency Musculoskeletal: Positive for: Back Pain Physical Exam - Reviewed Nursing Documentation Reviewed: Yes Vital Signs Reviewed: Yes - Physical Exam Appears: Positive for: Non-toxic, No Acute Distress Head Exam: Positive for: ATRAUMATIC, NORMAL INSPECTION, NORMOCEPHALIC Skin: Positive for: Warm. Negative for: Normal Color (Erythemetous circular area left flank, pt states bitten by insect. No pale center. No vesicles) Eye Exam: Positive for: EOMI, Normal appearance, PERRL ENT: Positive for: Normal ENT Inspection Neck: Positive for: Normal, Painless ROM Cardiovascular/Chest: Positive for: Regular Rate, Rhythm Respiratory: Positive for: CNT, Normal Breath Sounds Gastrointestinal/Abdominal: Positive for: Soft, Tenderness (RUQ) Back: Positive for: Normal Inspection Extremity: Positive for: Normal ROM Neurologic/Psych: Positive for: Alert, Oriented - Laboratory Results Result Diagrams: 10/05/17 09:25 10/05/17 09:25 - ECG O2 Sat by Pulse Oximetry: 99 Disposition - Clinical Impression Clinical Impression: Abdominal pain - Patient ED Disposition Is Patient to be Admitted: No - Disposition Disposition: Routine/Home Disposition Time: 11:22 Condition: FAIR Prescriptions: Pantoprazole Sodium [Protonix] 40 mg PO DAILY #30 tablet.dr Instructions: Gastritis Forms: [facility] (Luxembourger) Print Language: GERMAN
[2017-10-05] MEDS ORDERED: Famotidine 20mg/50ml 20 MG/50 ML BAG IVPB ONE ×2 (09:31→10:00)
[2017-10-05 09:55] LABS: BASO % 0.5 % (0.0-2.0); EOS # 0.1 K/uL (0.0-0.7); EOS % 1.1 % (0.0-4.0); HEMOGLOBIN 14.6 g/dL (12.0-16.0); LYMPH # 0.9 K/uL (1.0-4.3); LYMPH % 8.8 % (20.0-40.0); MEAN CELL VOLUME 88.7 fl (81.0-99.0); MEAN CORPUSCULAR HEMOGLOBIN 30.6 pg (27.0-31.0); MEAN CORPUSCULAR HGB CONC 34.4 g/dL (33.0-37.0); MEAN PLATELET VOLUME 8.2 fl (7.2-11.7); MONO # 0.8 K/uL (0.0-0.8); NEUT % 81.6 % (50.0-75.0); PLATELET COUNT 264 K/uL (130-400); RBC 4.79 Mil/uL (3.80-5.20); RED CELL DISTRIBUTION WIDTH 13.2 % (11.5-14.5); WHITE BLOOD COUNT 9.8 K/uL (4.8-10.8)
[2017-10-05 10:06] LABS: ALBUMIN 3.8 g/dL (3.5-5.0); ALT/SGPT 44 U/L (9-52); AST/SGOT 32 U/L (14-36); BLOOD UREA NITROGEN 12 mg/dl (7-17); CALCIUM 8.3 mg/dL (8.4-10.2); GFR AFRICAN-AMERICAN > 60; GFR NON-AFRICAN AMERICAN > 60; LIPASE 29 U/L (23-300)
--- NOTE | 2017-10-05 11:09 | CT ---
PROCEDURE: CT Abdomen and Pelvis without intravenous contrast HISTORY: r/o kidney stone COMPARISON: None. TECHNIQUE: CT scan of the abdomen and pelvis was performed without administration of intravenous contrast. Oral contrast was not administered. Coronal and sagittal reformatted images were obtained. Radiation dose: Total exam DLP = 303.71 mGy-cm. This CT exam was performed using one or more of the following dose reduction techniques: Automated exposure control, adjustment of the mA and/or kV according to patient size, and/or use of iterative reconstruction technique. FINDINGS: LOWER THORAX: The visualized lungs are clear. LIVER: Normal in size. No gross lesion or ductal dilatation. GALLBLADDER AND BILE DUCTS: Surgically absent. PANCREAS: Normal in size. No gross lesion or ductal dilatation. SPLEEN: Normal in size. ADRENALS: No discrete nodule. KIDNEYS AND URETERS: Normal in size without nephrolithiasis. No hydronephrosis. VASCULATURE: No aortic aneurysm. BOWEL: The small bowel loops are normal in caliber. The colon is unremarkable. APPENDIX: Normal appendix. PERITONEUM: No free fluid. No free air. LYMPH NODES: No enlarged lymph nodes. BLADDER: Grossly normal in appearance. REPRODUCTIVE: The uterus is normal in size. BONES: No acute fracture. Within normal limits for the patient's age. OTHER FINDINGS: None. IMPRESSION: No acute abdominal or pelvic abnormality. No evidence of nephrolithiasis or obstructive uropathy.
[2017-10-05 11:24] LABS: EOSINOPHIL 3 % (0-7); LYMPHOCYTE 8 % (20-50); MONOCYTE 4 % (0-10); NEUTROPHIL 82 % (42-75); PLATELET ESTIMATE NORMAL (NORMAL); REACTIVE LYMPHOCYTES 3 % (0-0); TOTAL CELLS COUNTED 100
[2017-10-05 11:36] VITALS: BP 105/71; PULSE 71; RESP 16
== END 2017-10-05 11:34 | disposition home or self-care (01) ==
LOC: H.ER 08:58
DX: R10.9 Unspecified abdominal pain (principal); R11.0 Nausea; F32.9 Major depressive disorder, single episode, unspecified; F41.9 Anxiety disorder, unspecified
CPT/HCPCS: 74176; 80053; 81025; 83690; 85025; 96361; 96374; 96375; 99285; J2405; J7030

== ENCOUNTER 2017-10-07 19:34 | Inpatient (IN) | payer SELFPAY ==
[2017-10-07 19:34] VITALS: BMI 25.8
[2017-10-07] MEDS ORDERED: Piperacillin/Tazobact 3.375 GM in Sodium Chloride 0.9% 100 ML IV STA (22:04)
[2017-10-07] MEDS ORDERED: Vancomycin 1 GM in Sodium Chloride 0.9% 100 ML IVPB STA (22:04)
[2017-10-07] MEDS ORDERED: Piperacillin/Tazobact 3.375 gm Inj IVPB ONE (22:10)
[2017-10-07 23:04] LABS: EOS # 0.1 K/uL (0.0-0.7); EOS % 0.8 % (0.0-4.0); HEMOGLOBIN 14.6 g/dL (12.0-16.0); LYMPH # 1.1 K/uL (1.0-4.3); LYMPH % 6.5 % (20.0-40.0); MEAN CELL VOLUME 88.8 fl (81.0-99.0); MEAN CORPUSCULAR HEMOGLOBIN 29.9 pg (27.0-31.0); MEAN CORPUSCULAR HGB CONC 33.6 g/dL (33.0-37.0); MEAN PLATELET VOLUME 8.1 fl (7.2-11.7); MONO # 1.4 K/uL (0.0-0.8); MONO % 8.7 % (0.0-10.0); NEUT # 13.8 K/uL (1.8-7.0); RBC 4.88 Mil/uL (3.80-5.20); RED CELL DISTRIBUTION WIDTH 13.4 % (11.5-14.5)
[2017-10-07 23:12] LABS: WHITE BLOOD COUNT 16.4 K/uL (4.8-10.8)
[2017-10-07 23:15] LABS: ALB/GLOB RATIO 1.1 (1.0-2.1); ALBUMIN 4.1 g/dL (3.5-5.0); ALT/SGPT 40 U/L (9-52); AST/SGOT 23 U/L (14-36); BLOOD UREA NITROGEN 10 mg/dl (7-17); CALCIUM 8.6 mg/dL (8.4-10.2); GFR AFRICAN-AMERICAN > 60; GFR NON-AFRICAN AMERICAN > 60
--- NOTE | 2017-10-08 00:01 | ED PDOC ---
HPI: Skin/Bite Injury Time Seen by Provider: 10/07/17 21:46 Chief Complaint (Nursing): Abnormal Skin Integrity Chief Complaint (Provider): Skin lesion History Per: Patient History/Exam Limitations: no limitations Onset/Duration Of Symptoms: Days (4) Current Symptoms Are (Timing): Still Present Location Of Injury: Left: Abdomen (flank) Quality Of Symptoms: Painful, Swollen Additional History Per: Patient Additional Complaint(s): 42yo female, with no past medical history, presents to ED for evaluation of a skin lesion on her left flank, worsening over the past 4 days. She reports the lesion has expanded in size and is warm and hot to touch. Patient states she might have had an insect bite prior to onset. Patient was evaluated in this ER 2 days ago and started on bactrim; she reports taking the medication as prescribed, with no improvement in her symptoms. She denies any associated fever , chills, abdominal pain and offers no other medical complaints. PMD: None provided Past Medical History Reviewed: Historical Data, Nursing Documentation, Vital Signs Vital Signs: Last Vital Signs Temp 98.3 F 10/08/17 03:27 Pulse 75 10/08/17 03:27 Resp 18 10/08/17 03:27 BP 91/56 L 10/08/17 03:27 Pulse Ox 98 10/08/17 03:27 - Medical History PMH: Anxiety, Depression - Surgical History Surgical History: Cholecystectomy (03-16-2016), (x 2) - Family History Family History: States: No Known Family Hx, Unknown Family Hx - Social History Current smoker - smoking cessation education provided: No Alcohol: None Drugs: Denies - Immunization History Hx Tetanus Toxoid Vaccination: No Hx Influenza Vaccination: No Hx Pneumococcal Vaccination: No - Home Medications Home Medications: Ambulatory Orders Medication Instructions Recorded Ibuprofen [Motrin] 600 mg PO Q6H #30 tab 06/07/16 Pantoprazole Sodium [Protonix] 40 mg PO DAILY #30 tablet 10/05/17 Sulfamethoxazole/Trimethoprim 1 tab PO BID #20 tab 10/05/17 [Bactrim DS 800 mg-160 mg] - Allergies Allergies/Adverse Reactions: Allergies Allergy/AdvReac Type Severity Reaction Status Date / Time No Known Allergies Allergy Verified 09/12/17 21:33 Review of Systems ROS Statement: Except As Marked, All Systems Reviewed And Found Negative Constitutional: Negative for: Fever, Chills Gastrointestinal: Negative for: Abdominal Pain Skin: Positive for: Other (lesion to left flank, worsening over past 4 days) Physical Exam - Reviewed Nursing Documentation Reviewed: Yes Vital Signs Reviewed: Yes - Physical Exam Appears: Positive for: Non-toxic, No Acute Distress Head Exam: Positive for: ATRAUMATIC, NORMAL INSPECTION, NORMOCEPHALIC Skin: Positive for: Dry Eye Exam: Positive for: Normal appearance Neck: Positive for: Supple Cardiovascular/Chest: Positive for: Regular Rate, Rhythm Respiratory: Positive for: Normal Breath Sounds Gastrointestinal/Abdominal: Positive for: Soft, Other (oblong [id number] annular area of warmth, indruation and erythema to left flank; no fluctuance noted. vesicular area in middle with no drainage). Negative for: Tenderness Neurologic/Psych: Positive for: Alert, Oriented - Laboratory Results Result Diagrams: 10/07/17 22:40 10/07/17 22:40 - ECG O2 Sat by Pulse Oximetry: 99 (RA) Pulse Ox Interpretation: Normal Medical Decision Making Medical Decision Making: Impression: Cellulitic lesion to left flank, worsening Plan: -- Labs -- IV Vancomycin -- IV Zosyn Progress: 0109: Labs reviewed and patient has leukocytosis. Patient to be admitted under Dr. Betancourt, due to: DX: Cellulitis and failure of outpatient treatment. Fair Scribe Attestation: Documented by Armida Samayoa, acting as a scribe for Maik Montoya MD Provider Attestation: All medical record entries made by the Scribe were at my direction and personally dictated by me. I have reviewed the chart and agree that the record accurately reflects my personal performance of the history, physical exam, medical decision making, and the department course for this patient. I have also personally directed, reviewed, and agree with the discharge instructions and disposition. Disposition - Clinical Impression Clinical Impression: Cellulitis - Patient ED Disposition Is Patient to be Admitted: Yes - Disposition Disposition Time: 01:09 Condition: FAIR - Pt Status Changed To: Hospital Disposition Of: Inpatient - Admit Certification Admit to Inpatient:: After my assessment, the patient will require hospitalization for at least two midnights. This is because of the severity of symptoms shown, intensity of services needed, and/or the medical risk in this patient being treated as an outpatient.
--- NOTE | 2017-10-08 02:36 | CP.PCM.HP ---
History of Present Illness - History of Present Illness History of Present Illness: 42 YO F w/ PMH of subclinical hypothyroidism presented to the ED for reevaluation of skin lesion over left flank region. Left flank lesion started last friday, after she feels she was bit by some type of insect, she had gone to the Emergency room on Friday where she was evaluated and discharged with Bactrim, which she has been taking however has not had any improvement. Describes pain in that region as a 10/10 before she received the toradol, now describe it as a 4/10. States the pain is sharp. Does not have similar lesion anywhere else on the body. Denies any travel or hiking. Denies any close pet contact. Denies any fever, chills, nausea, or vomiting. PMD: LEONIE PMH: Gastritis, Subclinical hypothyroidism, Spontanious PSH: Oophorectomy R 2011, Cholycystectomy 2016 FH: DM LMP: 07/29/17. Patient had a miscariage on 09/22/17 and has been being followed by OBGYN and PMD and [place] [facility] [place] Admission - Present on Admission Any Indicators Present on Admission: No Review of Systems - Review of Systems All systems: reviewed and no additional remarkable complaints except Past Patient History - Infectious Disease Hx of Infectious Diseases: None - Past Social History Alcohol: None Drugs: Denies - GENITOURINARY/GYNECOLOGICAL Hx Genitourinary Disorders: Yes - PSYCHIATRIC Hx Anxiety: Yes Hx Depression: Yes - SURGICAL HISTORY Hx Cholecystectomy: Yes (03-16-2016) - ANESTHESIA Hx Anesthesia: Yes Hx Anesthesia Reactions: No Meds Allergies/Adverse Reactions: Allergies Allergy/AdvReac Type Severity Reaction Status Date / Time No Known Allergies Allergy Verified 09/12/17 21:33 Physical Exam - Constitutional Appears: No Acute Distress - Head Exam Head Exam: NORMAL INSPECTION - Eye Exam Eye Exam: Normal appearance - ENT Exam ENT Exam: Mucous Membranes Moist - Respiratory Exam Respiratory Exam: Clear to Auscultation Bilateral. absent: Rhonchi, Wheezes - Cardiovascular Exam Cardiovascular Exam: REGULAR RHYTHM, +S1, +S2 - GI/Abdominal Exam GI & Abdominal Exam: Normal Bowel Sounds, Soft. absent: Tenderness - Extremities Exam Extremities exam: Positive for: normal inspection. Negative for: calf tenderness - Back Exam Back exam: NORMAL INSPECTION. absent: CVA tenderness (L), CVA tenderness (R) - Neurological Exam Neurological exam: Alert, CN II-XII Intact, Oriented x3 - Skin Additional comments: 8cm x 4 cm induration and erythema over the left flank. No active drainage. Warm to touch Results - Vital Signs Recent Vital Signs: Last Vital Signs Temp 98.4 F 10/08/17 02:27 Pulse 88 10/08/17 02:27 Resp 19 10/08/17 02:27 BP 95/52 L 10/08/17 02:27 Pulse Ox 98 10/08/17 02:12 - Labs Result Diagrams: 10/07/17 22:40 10/07/17 22:40 Labs: Laboratory Results - last 24 hr 10/07/17 10/07/17 10/07/17 22:40 22:40 22:40 WBC 16.4 H D RBC 4.88 Hgb 14.6 Hct 43.3 MCV 88.8 MCH 29.9 MCHC 33.6 RDW 13.4 Plt Count 293 MPV 8.1 Neut % (Auto) 84.0 H Lymph % (Auto) 6.5 L [place] % (Auto) 8.7 Eos % (Auto) 0.8 Baso % (Auto) 0.0 Neut # (Auto) 13.8 H Lymph # (Auto) 1.1 [place] # (Auto) 1.4 H Eos # (Auto) 0.1 Baso # (Auto) 0.0 Sodium 139 Potassium 3.7 Chloride 100 Carbon Dioxide 23 Anion Gap 20 BUN 10 Creatinine 0.8 Est GFR ( Amer) > 60 Est GFR (Non-Af Amer) > 60 Random Glucose 102 Lactic Acid 0.7 Calcium 8.6 Total Bilirubin 0.7 AST 23 ALT 40 Alkaline Phosphatase 86 Total Protein 7.8 Albumin 4.1 Globulin 3.7 Albumin/Globulin Ratio 1.1 Assessment & Plan - Assessment and Plan (Free Text) Assessment: 42 YO F w/ PMH of gastritis and subclinical hypothyroidism is being admited for cellulitic lesion over left flank region. 1) Cellulitic skin lesion (failed outpatient management) - WBC: 16.4 with left shift - Vancomycin, Zosyn Acyclovir x1 given in ER - C/W Vanco 1gm Q12 - pain controlled with medication 2) Gastritis - Protonix 3)DVT prophylaxis - SCD
[2017-10-08 03:31] LABS: SQUAMOUS EPITHIAL 2 /hpf (0-5); URINE BACTERIA MANY (<OCC); URINE BILIRUBIN NEGATIVE (NEGATIVE); URINE BLOOD NEGATIVE (NEGATIVE); URINE CLARITY SLIGHTY-CLOUDY (Clear); URINE COLOR YELLOW (YELLOW); URINE GLUCOSE (UA) NEG (Normal); URINE LEUKOCYTE ESTERASE NEG Leu/uL (Negative); URINE PROTEIN NEGATIVE (NEGATIVE)
[2017-10-08] MEDS ORDERED: Pneumococcal 23-Valent Vaccine IM ONE (06:00)
[2017-10-08] MEDS ORDERED: ceFAZolin 1 GM in Sodium Chloride 0.9% 100 ML IVPB SCH (09:00)
[2017-10-08] MEDS: Pantoprazole 40 mg EC Tab PO SCH (09:01)
--- NOTE | 2017-10-08 09:10 | CP.PCM.PN ---
Subjective - Date & Time of Evaluation Date of Evaluation: 10/08/17 Time of Evaluation: 08:30 Objective - Vital Signs/Intake and Output Vital Signs (last 24 hours): Temp Pulse Resp BP Pulse Ox 98.1 F 75 20 89/59 L 98 10/08/17 08:10 10/08/17 08:10 10/08/17 08:10 10/08/17 08:10 10/08/17 08:10 - Medications Medications: Current Medications Acetaminophen (Tylenol 325mg Tab) 650 mg PO Q4 PRN PRN Reason: Pain, Mild (1-3) Vancomycin HCl 1 gm/ Sodium (Chloride) 250 mls @ 166.667 mls/hr IVPB Q12 PADMINI PRN Reason: Protocol Ketorolac Tromethamine (Toradol) 30 mg IVP Q6 PRN PRN Reason: Pain, moderate (4-7) Pantoprazole Sodium (Protonix Ec Tab) 40 mg PO DAILY PADMINI Last Admin: 10/08/17 09:01 Dose: 40 mg - Labs Labs: 10/07/17 22:40 10/07/17 22:40 Assessment and Plan - Assessment and Plan (Free Text) Assessment: 42 YO F w/ PMH of gastritis and subclinical hypothyroidism is being admited for cellulitic lesion over left flank region. 1) Cellulitic skin lesion (failed outpatient management) - WBC: 16.4 with left shift - Vancomycin, Zosyn Acyclovir x1 given in ER - C/W Vanco 1gm Q12 - pain controlled with medication 2) Gastritis - Protonix 3)DVT prophylaxis - SCD
--- NOTE | 2017-10-08 11:14 | CP.PCM.PN ---
Subjective - Date & Time of Evaluation Date of Evaluation: 10/08/17 Time of Evaluation: 12:14 - Subjective Subjective: I D NOTE EMR REVIEWED HAVE ADDED CEFTRIAXONE TO RX CONTINUE VANCOMYCIN Objective - Vital Signs/Intake and Output Vital Signs (last 24 hours): Temp Pulse Resp BP Pulse Ox 98.1 F 75 20 89/59 L 98 10/08/17 08:10 10/08/17 08:10 10/08/17 08:10 10/08/17 08:10 10/08/17 08:10 - Medications Medications: Current Medications Acetaminophen (Tylenol 325mg Tab) 650 mg PO Q4 PRN PRN Reason: Pain, Mild (1-3) Vancomycin HCl 1 gm/ Sodium (Chloride) 250 mls @ 166.667 mls/hr IVPB Q12 PADMINI PRN Reason: Protocol Ceftriaxone Sodium 2 gm/ (Sodium Chloride) 100 mls @ 100 mls/hr IVPB DAILY PADMINI PRN Reason: Protocol Ketorolac Tromethamine (Toradol) 30 mg IVP Q6 PRN PRN Reason: Pain, moderate (4-7) Last Admin: 10/08/17 09:10 Dose: 30 mg Pantoprazole Sodium (Protonix Ec Tab) 40 mg PO DAILY PADMINI Last Admin: 10/08/17 09:01 Dose: 40 mg - Labs Labs: 10/07/17 22:40 10/07/17 22:40
[2017-10-08] MEDS: cefTRIAXone 2 GM in Sodium Chloride 0.9% 100 ML IVPB SCH (16:37)
--- NOTE | 2017-10-09 00:25 | CON ---
INFECTIOUS DISEASE CONSULTATION DATE: HISTORY OF PRESENT ILLNESS: The patient is a 42-year-old female who came to the emergency room for a lesion over the left flank region. She said it started last Friday prior to admission when felt she was bitten t by some sort of insect, possibly a spider. She had been through the ER once and received care and was discharged on Bactrim without improvement and as it worsened and she developed significant pain, she came back to the ER from where she was admitted. The patient does not have any other lesions and denies any chills or sweats. PAST MEDICAL HISTORY: Includes hypothyroidism and spontaneous earlier this month She had an oophorectomy on the right side in 2011 and a cholecystectomy in 2017. PHYSICAL EXAMINATION: GENERAL: The patient is alert, cooperative, and oriented to time and place. HEENT: Within normal limits. NECK: Supple. LUNGS: Clear. HEART: Regular sinus rhythm. EXTREMITIES: She has an irregular reddish lesion over the left flank area has a center, which looks to be either the origin of the infection possibly secondary to an insect bite. It is tender, painful, and it is about 8 cm x 4 cm induration. LABORATORY DATA: There are no cultures available. White count of 16.4 with 84 polys and platelet count of 293. Renal function is within normal limits. IMPRESSION AND PLAN: Abscess in left flank possibly secondary to an insect bite. I have ordered an ultrasound. We will treat with vancomycin 1 g IV piggyback every 12 hours and with Rocephin 2 g IV piggyback every 24 hours. Andrea Rodriguez MD [place]
[2017-10-09 07:48] LABS: HEMOGLOBIN 12.8 g/dL (12.0-16.0); MEAN CELL VOLUME 88.6 fl (81.0-99.0); MEAN CORPUSCULAR HGB CONC 33.9 g/dL (33.0-37.0); RBC 4.25 Mil/uL (3.80-5.20); RED CELL DISTRIBUTION WIDTH 13.1 % (11.5-14.5); WHITE BLOOD COUNT 12.3 K/uL (4.8-10.8)
[2017-10-09 08:09] VITALS: RESP 18
[2017-10-09] MEDS: Pantoprazole 40 mg EC Tab PO SCH (08:36)
[2017-10-09] MEDS: cefTRIAXone 2 GM in Sodium Chloride 0.9% 100 ML IVPB SCH (08:36)
[2017-10-09] MEDS ORDERED: methylPREDNISolone 20 MG in Sodium Chloride 0.9% 50 ML IVPB ONE (10:23)
[2017-10-09] MEDS ORDERED: MethylPREDNISolone 40 mg Vial IVP ONE (10:30)
--- NOTE | 2017-10-09 17:05 | US ---
PROCEDURE: Soft tissue nonvascular ultrasound. HISTORY: ABSCESS LEFT FLANK COMPARISON: 10/05/2017 CT abdomen and pelvis. TECHNIQUE: Standard protocol for this study/examination. FINDINGS: Area of interest left flank. Clinically this is in an area redness and cellulitis. Small collection containing debris, poorly formed with peripheral vascularity and central necrosis. The area of interest measures 1.9 x 1.0 x 0.9 cm. IMPRESSION: Small poorly formed phlegmon/inflammatory process corresponding findings on physical exam.
--- NOTE | 2017-10-09 17:19 | CP.PCM.PN ---
Subjective - Date & Time of Evaluation Date of Evaluation: 10/09/17 Time of Evaluation: 08:30 - Subjective Subjective: 42 y/o F seen and examined by bedside. Pt reports feeling well, skin lesion on her left flank not improving fast. Pt afebrile, tolerating PO with NO acute events overnight. Objective - Vital Signs/Intake and Output Vital Signs (last 24 hours): Temp Pulse Resp BP Pulse Ox 98.6 F 76 18 95/59 L 97 10/09/17 15:56 10/09/17 15:56 10/09/17 15:56 10/09/17 15:56 10/09/17 15:56 - Medications Medications: Current Medications Acetaminophen (Tylenol 325mg Tab) 650 mg PO Q4 PRN PRN Reason: Pain, Mild (1-3) Vancomycin HCl 1 gm/ Sodium (Chloride) 250 mls @ 166.667 mls/hr IVPB Q12 PADMINI PRN Reason: Protocol Last Admin: 10/09/17 10:11 Dose: 166.667 mls/hr Ceftriaxone Sodium 2 gm/ (Sodium Chloride) 100 mls @ 100 mls/hr IVPB DAILY PADMINI PRN Reason: Protocol Last Admin: 10/09/17 08:36 Dose: 100 mls/hr Ketorolac Tromethamine (Toradol) 30 mg IVP Q6 PRN PRN Reason: Pain, moderate (4-7) Last Admin: 10/09/17 06:22 Dose: 30 mg Pantoprazole Sodium (Protonix Ec Tab) 40 mg PO DAILY [facility] Last Admin: 10/09/17 08:36 Dose: 40 mg - Labs Labs: 10/09/17 05:30 10/07/17 22:40 - Constitutional Appears: No Acute Distress - Head Exam Head Exam: ATRAUMATIC - Eye Exam Eye Exam: EOMI, Normal appearance - ENT Exam ENT Exam: Mucous Membranes Moist - Neck Exam Neck Exam: Full ROM. absent: Lymphadenopathy - Respiratory Exam Respiratory Exam: Clear to Ausculation Bilateral, NORMAL BREATHING PATTERN - Cardiovascular Exam Cardiovascular Exam: REGULAR RHYTHM, +S1, +S2 - GI/Abdominal Exam GI & Abdominal Exam: Soft, Normal Bowel Sounds. absent: Tenderness - Extremities Exam Extremities Exam: Full ROM, Normal Inspection. absent: Calf Tenderness - Skin Additional comments: Left flank area: presence of a bite lesion with erythema and induration around. ---Area of erythema and induration decreased after a few hours of Solu-Medrol administration. Assessment and Plan - Assessment and Plan (Free Text) Assessment: 42 y/o F with a PMHx of gastritis and subclinical hypothyroidism is being admitted for evaluation of cellulitic lesion over left flank region. Cellulitic lesion (failed outpatient management) -WBC trending down: 16.4 yesterday -> 12.3 today; still elevated -On IV Vancomycin and IV Rocephin -SoluMedrol 20mg administered with remarkable improvement on physical exam after 3 hours. -ID, Dr Rodriguez, on board. -F/U sonogram results. Gastritis - Protonix DVT prophylaxis - SCD
[2017-10-09 23:38] VITALS: O2SAT 98
[2017-10-10 07:01] LABS: HEMOGLOBIN 12.5 g/dL (12.0-16.0); MEAN CORPUSCULAR HEMOGLOBIN 30.2 pg (27.0-31.0); RBC 4.15 Mil/uL (3.80-5.20); RED CELL DISTRIBUTION WIDTH 13.2 % (11.5-14.5); WHITE BLOOD COUNT 13.3 K/uL (4.8-10.8)
[2017-10-10 07:53] VITALS: BP 95/58; PULSE 62; TEMP 98.5
[2017-10-10] MEDS: cefTRIAXone 2 GM in Sodium Chloride 0.9% 100 ML IVPB SCH (08:20)
[2017-10-10] MEDS: Pantoprazole 40 mg EC Tab PO SCH (08:21)
--- NOTE | 2017-10-10 09:22 | CP.PCM.PN ---
Subjective - Date & Time of Evaluation Date of Evaluation: 10/10/17 Time of Evaluation: 09:22 - Subjective Subjective: Patient was seen and examined this morning. Objective - Vital Signs/Intake and Output Vital Signs (last 24 hours): Temp Pulse Resp BP Pulse Ox 98.5 F 62 18 95/58 L 98 10/10/17 07:52 10/10/17 07:52 10/10/17 07:52 10/10/17 07:52 10/10/17 07:52 - Medications Medications: Current Medications Acetaminophen (Tylenol 325mg Tab) 650 mg PO Q4 PRN PRN Reason: Pain, Mild (1-3) Vancomycin HCl 1 gm/ Sodium (Chloride) 250 mls @ 166.667 mls/hr IVPB Q12 PADMINI PRN Reason: Protocol Last Admin: 10/10/17 08:20 Dose: 166.667 mls/hr Ceftriaxone Sodium 2 gm/ (Sodium Chloride) 100 mls @ 100 mls/hr IVPB DAILY PADMINI PRN Reason: Protocol Last Admin: 10/10/17 08:20 Dose: 100 mls/hr Ketorolac Tromethamine (Toradol) 30 mg IVP Q6 PRN PRN Reason: Pain, moderate (4-7) Last Admin: 10/10/17 06:25 Dose: 30 mg Pantoprazole Sodium (Protonix Ec Tab) 40 mg PO DAILY PADMINI Last Admin: 10/10/17 08:21 Dose: 40 mg - Labs Labs: 10/10/17 06:30 10/07/17 22:40
--- NOTE | 2017-10-10 11:42 | CP.PCM.DIS ---
Provider - Provider Date of Admission: 10/08/17 01:07 Attending physician: Janki Betancourt MD Primary care physician: LEONIE Consults: Dr. Michael DUGGAN Time Spent in preparation of Discharge (in minutes): 40 Diagnosis - Discharge Diagnosis (1) Cellulitis Status: Acute Comment: Left Flank (2) Gastritis Status: Chronic Hospital Course - Lab Results Lab Results: Micro Results 10/07/17 22:55 Blood-Venous Blood Culture - Preliminary NO GROWTH AFTER 48 HOURS 10/07/17 22:40 Blood-Venous Blood Culture - Preliminary NO GROWTH AFTER 48 HOURS 10/08/17 03:15 Urine,Clean Catch Urine Culture - Final No Growth (<1,000 CFU/ML) Most Recent Lab Values WBC 13.3 K/uL (4.8-10.8) H 10/10/17 06:30 RBC 4.15 Mil/uL (3.80-5.20) 10/10/17 06:30 Hgb 12.5 g/dL (12.0-16.0) 10/10/17 06:30 Hct 36.9 % (34.0-47.0) 10/10/17 06:30 MCV 89.0 fl (81.0-99.0) 10/10/17 06:30 MCH 30.2 pg (27.0-31.0) 10/10/17 06:30 MCHC 34.0 g/dL (33.0-37.0) 10/10/17 06:30 RDW 13.2 % (11.5-14.5) 10/10/17 06:30 Plt Count 309 K/uL (130-400) 10/10/17 06:30 MPV 8.1 fl (7.2-11.7) 10/07/17 22:40 Neut % (Auto) 84.0 % (50.0-75.0) H 10/07/17 22:40 Lymph % (Auto) 6.5 % (20.0-40.0) L 10/07/17 22:40 [place] % (Auto) 8.7 % (0.0-10.0) 10/07/17 22:40 Eos % (Auto) 0.8 % (0.0-4.0) 10/07/17 22:40 Baso % (Auto) 0.0 % (0.0-2.0) 10/07/17 22:40 Neut # (Auto) 13.8 K/uL (1.8-7.0) H 10/07/17 22:40 Lymph # (Auto) 1.1 K/uL (1.0-4.3) 10/07/17 22:40 [place] # (Auto) 1.4 K/uL (0.0-0.8) H 10/07/17 22:40 Eos # (Auto) 0.1 K/uL (0.0-0.7) 10/07/17 22:40 Baso # (Auto) 0.0 K/uL (0.0-0.2) 10/07/17 22:40 Sodium 139 mmol/l (132-148) 10/07/17 22:40 Potassium 3.7 MMOL/L (3.6-5.0) 10/07/17 22:40 Chloride 100 mmol/L (98-107) 10/07/17 22:40 Carbon Dioxide 23 mmol/L (22-30) 10/07/17 22:40 Anion Gap 20 (10-20) 10/07/17 22:40 BUN 10 mg/dl (7-17) 10/07/17 22:40 Creatinine 0.8 mg/dl (0.7-1.2) 10/07/17 22:40 Est GFR ( Amer) > 60 10/07/17 22:40 Est GFR (Non-Af Amer) > 60 10/07/17 22:40 Random Glucose 102 mg/dL (65-105) 10/07/17 22:40 Lactic Acid 0.7 MMOL/L (0.7-2.1) 10/07/17 22:40 Calcium 8.6 mg/dL (8.4-10.2) 10/07/17 22:40 Total Bilirubin 0.7 mg/dl (0.2-1.3) 10/07/17 22:40 AST 23 U/L (14-36) 10/07/17 22:40 ALT 40 U/L (9-52) 10/07/17 22:40 Alkaline Phosphatase 86 U/L (38-126) 10/07/17 22:40 Total Protein 7.8 G/DL (6.3-8.2) 10/07/17 22:40 Albumin 4.1 g/dL (3.5-5.0) 10/07/17 22:40 Globulin 3.7 gm/dL (2.2-3.9) 10/07/17 22:40 Albumin/Globulin Ratio 1.1 (1.0-2.1) 10/07/17 22:40 Urine Color Yellow (YELLOW) 10/08/17 03:15 Urine Clarity Slighty-cloudy (Clear) 10/08/17 03:15 Urine pH 6.0 (5.0-8.0) 10/08/17 03:15 Ur Specific [place] 1.013 (1.003-1.030) 10/08/17 03:15 Urine Protein Negative mg/dL (NEGATIVE) 10/08/17 03:15 Urine Glucose (UA) Neg mg/dL (Normal) 10/08/17 03:15 Urine Ketones Negative mg/dL (NEGATIVE) 10/08/17 03:15 Urine Blood Negative (NEGATIVE) 10/08/17 03:15 Urine Nitrate Negative (NEGATIVE) 10/08/17 03:15 Urine Bilirubin Negative (NEGATIVE) 10/08/17 03:15 Urine Urobilinogen 2.0 mg/dL (0.2-1.0) H 10/08/17 03:15 Ur Leukocyte Esterase Neg [place] M/uL (Negative) 10/08/17 03:15 Urine RBC (Auto) 1 /hpf (0-3) 10/08/17 03:15 Urine Microscopic WBC 1 /hpf (0-5) 10/08/17 03:15 Ur Squamous Epith Cells 2 /hpf (0-5) 10/08/17 03:15 Urine Bacteria Many (<OCC) H 10/08/17 03:15 - Hospital Course Hospital Course: 42 y/o F w/ PMH of subclinical hypothyroidism admitted to [facility] for reevaluation of skin lesion over left flank region. After admission, patient was found to be afebrile but elevated WBCs. Patient was treated with IV Vancomycin and IV Rocephin for 3 days and Solumedrol. U/S of left flank showed small poorly formed inflammatory process. Patient improved on discharged day and d/c home with clindamycin 300mg BID for 10 days. Follow up with PMD after discharge. Discharge Exam - Head Exam Head Exam: ATRAUMATIC - Eye Exam Eye Exam: Normal appearance Pupil Exam: NORMAL ACCOMODATION - ENT Exam ENT Exam: Mucous Membranes Moist - Respiratory Exam Respiratory Exam: Clear to PA & Lateral, NORMAL BREATHING PATTERN - Cardiovascular Exam Cardiovascular Exam: REGULAR RHYTHM, +S1, +S2 - GI/Abdominal Exam GI & Abdominal Exam: Normal Bowel Sounds Additional comments: Left flank area: presence of 5x3cm erythema and induration around, Nontender, warm to touch, skin intact - Extremities Exam Extremities exam: full ROM, normal capillary refill, pedal pulses present - Back Exam Back exam: absent: CVA tenderness (L), CVA tenderness (R) - Neurological Exam Neurological exam: Alert, Oriented x3 - Psychiatric Exam Psychiatric exam: Normal Affect - Skin Skin Exam: Dry, Intact, Normal Color Discharge Plan - Discharge Medications Prescriptions: Clindamycin [Cleocin] 300 mg PO BID #20 vial Clindamycin [Cleocin] 300 mg PO BID #60 vial - Follow Up Plan Condition: FAIR Disposition: HOME/ ROUTINE Patient education suggested?: Yes Instructions: Cellulitis (DC), Cellulitis (GEN) Additional Instructions: meds sent to pharmacy stable to DC home, see DC summary for details Referrals: [facility] [Outside] - 10/14/17 3:20 pm (with Dr. Gonsalves)
== END 2017-10-10 14:37 | disposition home or self-care (01) | DRG 278 ==
LOC: H.ER 19:34 → H.ERHOLD 10-08 01:07 → H.MEDSURG1 10-08 03:26
PROVIDERS: ADMIT Family Medicine Geriatric Medicine; ATTEND Family Medicine Geriatric Medicine
PROC: 3E0234Z Introduction of Serum, Toxoid and Vaccine into Muscle, Percutaneous Approach (ICD-10-PCS; principal; 2017-10-08)
DX: L03.116 Cellulitis of left lower limb (principal); E02 Subclinical iodine-deficiency hypothyroidism; Z23 Encounter for immunization; F41.9 Anxiety disorder, unspecified; F32.9 Major depressive disorder, single episode, unspecified; K29.50 Unspecified chronic gastritis without bleeding